=== PATIENT | female | born 1970 | race African-American/Black ===

== ENCOUNTER 2019-09-04 08:56 | Emergency (ER) | payer MEDICAID ==
[~2019-09-04] VITALS: Ht 152.4 cm; Wt 62.0 kg
[2019-09-04 09:41] VITALS: BP 132/67
[2019-09-04 09:48] LABS: HEMATOCRIT. 23.7 % (36.0-48.0); MEAN CORPUSCULAR HEMOGLOBIN 15.9 pg (28.0-32.0); MEAN CORPUSCULAR VOLUME 54.2 fL (81.0-99.0); MEAN PLATELET VOLUME 8.8 fl (7.4-10.4); PLATELET 393 x1000/uL (130-400); RED BLOOD CELL COUNT 4.37 mill/uL (4.2-5.4); RED CELL DISTRIBUTION WIDTH 21.8 % (11.6-14.6)
[2019-09-04 09:54] LABS: CHLORIDE 106 mEq/L (98-107)
[2019-09-04 09:55] LABS: INR 1.1; PROTHROMBIN TIME 11.4 sec (9.6-11.0)
[2019-09-04 10:19] LABS: PLATELET ESTIMATE NORMAL
== END 2019-09-04 11:00 | disposition left against medical advice (07) ==
LOC: ER 08:56
DX: D64.9 Anemia, unspecified (principal)
CPT/HCPCS: 36415; 80053; 85025; 86850; 86900; 86920; 93005; 99284